=== PATIENT | male | born 1985 | race Caucasian/White ===

== ENCOUNTER 2021-07-17 20:58 | Emergency (ER) | payer OTHER, BC ==
[2021-07-17] MEDS ORDERED: Acetaminophen/oxyCODONE 325-10 MG Tab PO ONE (21:09)
[2021-07-17] MEDS ORDERED: Diphtheria,Pertussis(Acell),Tetanus Vaccine 0.5 ML Syringe IM ONE (21:09)
[2021-07-17] MEDS ORDERED: Bupivacaine 0.5% 10 ML SDV INJECT ONE (21:10)
[2021-07-17] MEDS ORDERED: Cephalexin 500 MG Cap PO ONE (21:10)
[2021-07-17] MEDS ORDERED: Lidocaine 1% 5 ML VIAL INJECT ONE (21:10)
== END 2021-07-17 23:50 | disposition home or self-care (01) ==
LOC: MW.ED 20:58
DX: S68.623A Partial traumatic transphalangeal amputation of left middle finger, initial encounter (principal); S61.213A Laceration without foreign body of left middle finger without damage to nail, initial encounter; Z23 Encounter for immunization; W20.8XXA Other cause of strike by thrown, projected or falling object, initial encounter
CPT/HCPCS: 12001; 73130; 90471; 90715; 99283; A9270; J3490; 64450